=== PATIENT | female | born 1985 | race Caucasian/White ===

== ENCOUNTER 2016-09-02 21:49 | Emergency (ER) | payer SELFPAY ==
[2016-09-02] MEDS ORDERED: LIDOCAINE 1% INJ-PF (10 MG/ML) 30 ML SDV INJ ONE (23:49)
[2016-09-02] MEDS ORDERED: BUPIVACAINE HCL 0.5 % INJ/PF 30 ML SDV INJ ONE (23:49)
--- NOTE | 2016-09-02 23:49 | ER Document Report ---
ED Oral Problem - General Mode of Arrival: Ambulatory Information source: Patient TRAVEL OUTSIDE OF THE [place] IN LAST 30 DAYS: No - HPI Patient complains to provider of: Other - mouth pain Associated symptoms: Other - See above <JAYY LAU - Last Filed: 09/03/16 06:21> <KHANG WAGNER - Last Filed: 09/03/16 06:26> - General Chief Complaint: Toothache Stated Complaint: MOUTH PAIN Time Seen by Provider: 09/02/16 23:42 Notes: Patient is a 30 year old female who presents to the emergency department complaining of mouth pain. Patient reports she broke a tooth in the back of her mouth a couple of months ago and started experiencing increasing pain in the area a couple of days ago. Patient states that a pocket seems to be forming in her gum and is worried about infection. Patient reports it is painful to talk and she is unable to open her mouth fully although she can still open it. ( JAYY LAU) - Related Data Allergies/Adverse Reactions: No Known Allergies Allergy (Unverified 07/28/12 07:36) Past Medical History - General Information source: Patient - Social History Smoking Status: Current Every Day Smoker Chew tobacco use (# tins/day): No Frequency of alcohol use: Occasional Drug Abuse: Marijuana Family History: Reviewed & Not Pertinent, Other - Asthma Pulmonary Medical History: Reports: Hx Asthma Past Surgical History: Reports: Hx Tonsillectomy - Immunizations Hx Diphtheria, Pertussis, Tetanus Vaccination: Yes <JAYY LAU - Last Filed: 09/03/16 06:21> Review of Systems - Review of Systems Constitutional: No symptoms reported EENT: See HPI, Mouth pain, Dental problem Cardiovascular: No symptoms reported Respiratory: No symptoms reported Gastrointestinal: No symptoms reported Genitourinary: No symptoms reported Female Genitourinary: No symptoms reported Musculoskeletal: No symptoms reported Skin: No symptoms reported Hematologic/Lymphatic: No symptoms reported Neurological/Psychological: No symptoms reported -: Yes All other systems reviewed and negative <JAYY LAU - Last Filed: 09/03/16 06:21> Physical Exam <JAYY LAU - Last Filed: 09/03/16 06:21> <KHANG WAGNER - Last Filed: 09/03/16 06:26> - Vital signs Vitals: Temp Pulse Resp BP Pulse Ox 98.3 F 67 18 171/94 H 95 09/03/16 01:40 09/03/16 01:40 09/03/16 01:40 09/03/16 01:40 09/03/16 01:40 - Notes Notes: GENERAL: Alert, interacts well. No acute distress. Obese. HEAD: Normocephalic, atraumatic. No swelling or erythema. EYES: Pupils equal, round. Extraocular movements intact. ENT: Fractured left maxillary molar with sharp fragments, redness, and tender to palpation, no fluctuance laterally Area of fluctuance with no erythema medially to tooth in hard pallet, tender to palpation. Oral mucosa moist, tongue midline. No restrictions to opening mouth. No evidence of respiratory compromise. NECK: Full range of motion. Supple. Trachea midline. No enlarged lymph nodes. LUNGS: No respiratory distress. EXTREMITIES: Moves all 4 extremities spontaneously. NEUROLOGICAL: Alert and oriented x3. Normal speech. PSYCH: Normal affect, normal mood. SKIN: Warm, dry, normal turgor. No rashes or lesions noted. (JAYY LAU) Course <JAYY LAU - Last Filed: 09/03/16 06:21> <KHANG WAGNER - Last Filed: 09/03/16 06:26> - Re-evaluation Re-evalutation: 09/03/16 01:01 Attempted to drain an area of swelling on the hard palate without success, no pus was obtained. Patient will be started on clindamycin, given [place] dispense pack and discharged to home. Patient will follow up with dentist on . ( KHANG WAGNER) - Vital Signs Vital signs: Temp Pulse Resp BP Pulse Ox 98.3 F 67 18 171/94 H 95 09/03/16 01:40 09/03/16 01:40 09/03/16 01:40 09/03/16 01:40 09/03/16 01:40 Procedures - Incision and Drainage Left hard palate Type: Simple, Single Anesthetic type: 1% Lidocaine mL's of anesthetic: 5 Blade size: Other - 18-gauge needle Incision Method: Incision made with needle Amount/type of drainage: Small amount of blood. <KHANG WAGNER - Last Filed: 09/03/16 06:26> Discharge <JAYY LAU - Last Filed: 09/03/16 06:21> <KHANG WAGNER - Last Filed: 09/03/16 06:26> - Discharge Clinical Impression: Dental infection Condition: Stable Disposition: HOME, SELF-CARE Instructions: Dental Infection or Abscess ([facility]) Prescriptions: Benzonatate [Tessalon Perles 100 mg Capsule] 100 mg PO Q8HP PRN #40 capsule PRN Reason: Clindamycin HCl 300 mg PO Q6 #28 capsule Scribe Attestation: 09/03/16 06:26 I personally performed the services described in the documentation, reviewed and edited the documentation which was dictated to the scribe in my presence, and it accurately records my words and actions. (KHANG WAGNER) Scribe Documentation - Scribe Written by Vanessa:: vanessa Garvey, 09/03/16, 0040 acting as scribe for :: Breann <JAYY LAU - Last Filed: 09/03/16 06:21>
[2016-09-03] MEDS ORDERED: HYDROCODONE/ACETAMINOPHEN 5-325 MG 6 TAB/DSPK PO PRN (01:02)
[2016-09-03] MEDS ORDERED: CLINDAMYCIN HCL 150 MG CAPSULE PO ONE (01:02)
[2016-09-03 03:40] VITALS: BP 171/94
== END 2016-09-03 01:40 | disposition home or self-care (01) ==
LOC: ER 21:49
PROC: 0C92XZZ Drainage of Hard Palate, External Approach (ICD-10-PCS; principal; 2016-09-02)
DX: K04.7 Periapical abscess without sinus (principal); K08.9 Disorder of teeth and supporting structures, unspecified; F17.200 Nicotine dependence, unspecified, uncomplicated
CPT/HCPCS: 99282; 40800; J3490